=== PATIENT | female | born 1955 | race Caucasian/White ===

== ENCOUNTER 2016-06-15 19:29 | Inpatient (IN) | payer OTHER ==
[~2016-06-15] VITALS: Ht 172.7 cm; Wt 103.2 kg
--- NOTE | ~2016-06-15 | CATHLAB ---
[facility] [employer] [place] [address] INVASIVE PROCEDURE REPORT Name: LILIA SERRANO Room #: 204-P [facility] IN ..#: [id number] Admission: 06/15/16 Attend Phys: Chuy Rivera MD Discharge: Date of : 55 Date of Service: 06/16/16 1001 Report #: [id number] THIS REPORT FOR: //name// CC: Ally Rivera PROCEDURES: Left ventriculography, coronary angiography, selective renal angiography. DESCRIPTION OF PROCEDURE: The patient brought to the catheterization lab with a significant troponin elevation of 25. Pain free. Right groin prepped and draped in sterile manner. Xylocaine 1% was used for local anesthesia. Versed was given for conscious sedation. A 6-Urdu sheath in the right femoral artery. A straight pigtail catheter performed a single KISER arteriogram and AP aortogram. LV function was preserved. Abdominal aorta was intact. FL4 left coronary system, FR4 right coronary system. I also utilized the FR4 for selective renal artery injections. It looked like the right renal artery had significant disease. These were minimally diseased bilaterally, single bilateral. The coronary system appeared to be normal and in fact pristine coronary arteries in predominantly a left dominant system. I do not see evidence of ruptured plaque or any residual thrombus or clot. Supposition is that this could be coronary spasm. The patient had been taking significant amount of Sudafed over the last 2 or 3 days, doubling up on her doses. She is pain free and comfortable. Mynx closure was utilized for the right femoral artery. HEMODYNAMICS: Aortic 150/92. LV 168/18. IMPRESSION: 1. Normal coronary anatomy in a predominantly left dominant system. No occlusive disease is noted, somewhat I would say codominant system. No occlusive disease is noted. 2. Normal left ventricular size and systolic function, EF 60%, no clear wall motion abnormality. Perhaps a slight area of anterior lateral wall lag, but would confirm this with echo. 3. Single bilateral renal arteries widely patent. RECOMMENDATIONS: Continue aggressive risk factor modification. Would avoid all tobacco products and/or decongestions indefinitely. Would add calcium channel celestine plus minus a long-acting nitrate, continue with statin. Obviously, coronary spasm is very concerning. We will discuss this further with the patient. No lifting for 48 hours. No lying in tub, Jacuzzi or cardoso for a week. Transfer back to CCU in stable condition. By: 1001 2132 Maxime Negrete MD, FACC /nt
--- NOTE | ~2016-06-15 | EKG ---
[place] [address] [facility] [place] [address] ELECTROCARDIOGRAM REPORT Name: LILIA SERRANO Room #: 204-P ADM IN M.R.#: [id number] Admission: 06/15/16 Attend Phys: Chuy Rivera MD Discharge: Date of : 55 Report #: [id number] THIS REPORT FOR: //name// [facility] ED Test Date: 2016-06-15 Test Time: 19:32:43 Pat Name: LILIA SERRANO Department: Room: 204 P Gender: F Linen Checker: MZOOSerena : 1955 Requested By: Erin Daniel Order Number: [id number] MD: Jensen Jean Measurements Intervals [place] Rate: 74 P: 30 ID: 136 QRS: -2 QRSD: 97 T: 4 QT: 414 QTc: 460 Interpretive Statements Sinus rhythm Minimal ST depression, anterior leads No previous ECG available for comparison Electronically Signed On 06-17-2016 7:40:30 CDT by Jensen Jean [email or web address] <ELECTRONICALLY SIGNED> By: Jensen Jean MD, [facility] 06/17/16 0740 1931 31 Jensen Jean MD, FACC /EPI
--- NOTE | ~2016-06-15 | H ---
[facility] [place] [address] HISTORY AND PHYSICAL Name: LILIA SERRANO Room #: 204-P ADM IN M.R.#: [id number] Admission: 06/15/16 Attend Phys: Camilo Palma MD Discharge: Date of : 55 Report #: [id number] THIS REPORT FOR: //name// CC: Ally Palma DATE OF SERVICE: 06/15/2016 ATTENDING PHYSICIAN: Ally Deal M.D. CHIEF COMPLAINT: Chest pain. HISTORY OF PRESENT ILLNESS: The patient is a 60-year-old female who denies any prior history of coronary artery disease. She was at home today in her normal state of health when she developed some chest pain after walking up some stairs at home. The pain was located mostly in the middle of her chest and above her left breast. She did have some radiation of the pain into her chin and jaw area. She had nausea with the onset and vomited once. She said the pain was severe and rated it 7/10 at its onset. She denies any associated shortness of breath or diaphoresis. She has never had this type of pain before. She denies any other recent exertional chest pain. She took 4 baby aspirin at home and called EMS. In the ER, her pain resolved even prior to getting any morphine or nitro. She did have a stress test 8-10 years ago, which was negative. She just had an echocardiogram last year, which she said was negative. She is now currently being seen in the CCU. She says her pain is starting to come back and rates it 2-3/10. PAST MEDICAL HISTORY: Rheumatoid arthritis, hypothyroidism, hyperlipidemia and iron deficiency anemia. PAST SURGICAL HISTORY: Knee surgery, cholecystectomy, hysterectomy and ovary removal. ALLERGIES: None. HOME MEDICATIONS: Methotrexate 2.5 mg weekly, iron 325 mg daily, cholestyramine 4 grams daily, calcium with vitamin D 1 tab daily, Protonix 40 mg b.i.d., prednisone 5 mg daily, levothyroxine 200 mcg daily, folic acid 1 mg daily and Actemra 162 mg daily. SOCIAL HISTORY: The patient is an ex-smoker, having quit 1 year ago after smoking up to 1-1/2 packs of cigarettes per day for 42 years. 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 She lives with her female partner. She denies any alcohol or drug use. FAMILY HISTORY: Her father had some heart problems and has a pacemaker and had [facility] [address] [place] [address] HISTORY AND PHYSICAL Name: LILIA SERRANO Room #: 204-P [facility] IN [facility]#: [id number] Admission: 06/15/16 Attend Phys: Camilo Palma MD Discharge: Date of : 55 Report #: [id number] to have a valve replacement. REVIEW OF SYSTEMS: A 12-point review of systems was reviewed with the patient, otherwise negative unless stated in the HPI. PHYSICAL EXAMINATION: GENERAL: The patient is an alert, pleasant female in no acute distress. VITAL SIGNS: Temperature is 36.8, heart rate 69, respirations 14, blood pressure is 149/91 and oxygen 100% on room air. HEENT: PERRLA. Sclerae are nonicteric. Oral mucosa is pink and moist. NECK: Supple, no JVD noted. CARDIOVASCULAR: Normal S1, S2. No murmurs, rubs or gallops. RESPIRATORY: Breath sounds are clear bilaterally. No wheezing or rhonchi. Breathing is nonlabored. ABDOMEN: Soft, round, nontender and nondistended with positive bowel sounds. VASCULAR: No edema noted. Pedal pulses are 2+. NEUROLOGIC: The patient is alert and oriented x 3. Speech is clear. She is moving all extremities equally. No focal neuro deficits noted. LABORATORY AND DIAGNOSTIC DATA: WBC is 3.7, hemoglobin is 12.6 and platelets 141. INR 1.1. Sodium 142, potassium 3.4, BUN 14, creatinine 0.8 and glucose 110. LFTs are within normal limits. CK is 80, initial troponin was 0.85. BNP 166. Chest x-ray showed some mild atelectasis or a strand-like infiltrate in the left lung base. Remainder of the lungs are clear. Initial EKG showed sinus rhythm with minimal ST depression in the anterior leads. ASSESSMENT AND PLAN: 1. Non-ST elevation myocardial infarction. Repeat troponin has just been drawn and results are pending. Repeat EKG did show some improvement in the anteriorly lead ST changes. She was given a dose of therapeutic Lovenox in the ER. Continue with daily aspirin and await further cardiology recommendations. Continue to monitor on telemetry. 2. Rheumatoid arthritis. She is on immunosuppressant therapy with daily steroids and Actemra and methotrexate. Continue with home meds. 3. Hypothyroidism. Check TSH level. Continue Synthroid. 4. Hypokalemia. This will be replaced. Follow labs. 5. Deep vein thrombosis prophylaxis. Place sequential compression devices. We will continue to follow the patient closely throughout the hospitalization and make changes based on clinical status. <ELECTRONICALLY SIGNED> By: ALIYAH Maldonado 06/16/16 0615 0455 0602 Jeannine Alexander, MACHINIST SUPERVISOR /nt
--- NOTE | ~2016-06-15 | EKG ---
[address] [employer] [place] [address] ELECTROCARDIOGRAM REPORT Name: LILIA SERRANO Room #: 204-P [facility] IN M.R.#: [id number] Admission: 06/15/16 Attend Phys: Chuy Rivera MD Discharge: Date of : 55 Report #: [id number] THIS REPORT FOR: //name// [facility] Test Date: 2016-06-15 Test Time: 23:50:41 Pat Name: LILIA SERRANO Department: Room: 204 Gender: F Executive Casino Host: WALTER : 1955 Requested By: Erin Daniel Order Number: [id number] MD: Jensen Jean Measurements Intervals [place] Rate: 67 P: 40 [place]: 133 QRS: 8 QRSD: 101 T: 41 QT: 543 QTc: 574 Interpretive Statements Sinus rhythm Nonspecific ST and T wave abnormality Prolonged QT interval No previous ECG available for comparison Electronically Signed On 06-17-2016 7:42:53 CDT by Jensen Jean [email or web address] <ELECTRONICALLY SIGNED> By: Jensen Jean MD, [facility] 06/17/16 0742 2350 49 Jensen Jean MD, FACC /EPI
--- NOTE | ~2016-06-15 | HC ---
[facility] [place] [address] CONSULTATION Name: LILIA SERRANO Adrian Room #: 204-P [facility] IN ..#: [id number] Admission: 06/15/16 Attend Phys: Chuy Rivera MD Discharge: 06/17/16 Date of : 55 Report #: [id number] THIS REPORT FOR: //name// CC: Ally Rivera CARDIOLOGY CONSULTATION REASON FOR CONSULTATION: Non-ST segment elevation DE. HISTORY OF PRESENT ILLNESS: The patient is a 60-year-old female with a history of rheumatoid arthritis, tobacco abuse and hyperlipidemia, who presents with new-onset chest pain, 7/10 in intensity, describes as a heaviness, which radiated to her jaw, associated with some nausea and vomiting. She presented to the Emergency Room though the pain had resolved. She reports that she had an echo at [place] about a year ago when she was having some shortness of breath and that was normal. She is currently chest pain free. PAST MEDICAL HISTORY: 1. Tobacco abuse. 2. Rheumatoid arthritis, on methotrexate. 3. Hypothyroidism. 4. Hyperlipidemia. PAST SURGICAL HISTORY: Includes knee surgery, cholecystectomy, hysterectomy, ovaries removed. ALLERGIES: No known drug allergies. MEDICATIONS: Include Actemra, folic acid, Synthroid, prednisone, Protonix, vitamin D, cholestyramine, iron and methotrexate. SOCIAL HISTORY: She quit smoking 1 year ago. 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 REVIEW OF SYSTEMS: Twelve-point review of systems was performed, it was otherwise negative. PHYSICAL EXAMINATION: VITAL SIGNS: Blood pressure is 36.6, pulse 60, respirations 16, blood pressure 138/87, sats 97%. GENERAL: She is in no acute distress. HEENT: Oropharynx is clear. NECK: Supple with no thyromegaly or carotid bruits. HEART: Regular rate and rhythm with normal S1 and S2. No S3 or S4. LUNGS: Clear to auscultation bilaterally. ABDOMEN: Soft, nontender, nondistended with no hepatosplenomegaly. [facility] [address] [place] [address] CONSULTATION Name: LILIA SERRANO Room #: 204-[facility].#: [id number] Admission: 06/15/16 Attend Phys: Chuy Rivera MD Discharge: 06/17/16 Date of : 55 Report #: [id number] EXTREMITIES: There is no clubbing, cyanosis, or edema. NEUROLOGIC: Cranial nerves 2-12 are intact. LABORATORY DATA: Sodium 144, potassium 3.6, BUN 12, creatinine 0.7, mag 1.9. White count 3.7, hemoglobin 12.6, platelets are 141. Troponins; initial troponin was 0.85, then increased to 36.4, then decreased to 25.8. Her 12-lead EKGs, initial EKG showed some mild ST depression in V2, V3 and V4; that was at 7:00 p.m. Her followup EKGs at 2350 and this morning at 6:52 just show sinus rhythm with no ST changes. Chest x-ray shows no acute process. IMPRESSION: In summary, the patient is a 60-year-old female with history of rheumatoid arthritis, tobacco abuse and hyperlipidemia, presenting with chest pain and elevated troponins. It appears that she is having a non-ST segment elevation myocardial infarction. I discussed that she will require cardiac catheterization. We discussed the details of the procedure including the risks, which include, but not limited to bleeding, vascular damage as well as stroke or DE. She understands these risks and is willing to proceed. We will obtain an echocardiogram as well. <ELECTRONICALLY SIGNED> By: Misha Burton MD 06/21/16 0853 0816 1044 Misha Burton MD /nt
--- NOTE | ~2016-06-15 | D ---
[facility] [place] [address] DISCHARGE SUMMARY Name: LILIA SERRANO Adrian Room #: 204-P [facility] IN ..#: [id number] Admission: 06/15/16 Attend Phys: Chuy Rivera MD Discharge: 06/17/16 Date of : 55 Report #: [id number] THIS REPORT FOR: //name// CC: Ally Rivera DATE OF SERVICE: 06/17/2016 REASON FOR ADMISSION: Chest pain. DISCHARGE DIAGNOSES: 1. Troponin elevation and chest pain, felt to be from coronary vasospasm. 2. Hypothyroidism with elevated TSH. CONSULTATIONS WHILE INPATIENT: Dr. Negrete, Cardiology. PROCEDURES: There is coronary catheterization performed without significant coronary artery disease noted. Chest x-ray without acute findings. PHYSICAL EXAMINATION: VITAL SIGNS: On day of discharge, the patient is afebrile, pulse 72, respiration rate 18, O2 sat 95 on room air, blood pressure 107/55. GENERAL: Awake, alert, in no acute distress. HEENT: Unremarkable. NECK: No JVD or thyromegaly. HEART: S1, S2 present. Regular entry present bilaterally. ABDOMEN: Soft, nontender. EXTREMITIES: Without edema. Right groin cath site without palpable hematoma. NEUROLOGIC: Awake, alert. No gross focal findings. SKIN: Unremarkable, no rash or lesions. LABORATORIES AND INVESTIGATIONS: Notable for elevated TSH of 13.731. BRIEF INPATIENT COURSE: The patient is a 60-year-old female who presented with chest pain and was noted to have troponin elevation, peaking at 36.4. She subsequently underwent coronary catheterization, which did not reveal any significant coronary artery disease. Her symptoms were resolved by the time of discharge and felt most likely to represent coronary vasospasm. She has been started on a calcium channel celestine by Cardiology at discharge and we will continue close outpatient with them post-discharge. She was incidentally also noted to have elevated TSH and her outpatient thyroxine dose will be increased and she will continue to follow up for the same with her primary care physician. She is otherwise doing fair on discharge. I have discussed again condition [facility] [address] [place] [address] DISCHARGE SUMMARY Name: LILIA SERRANO Room #: 204-P [facility] IN [facility].#: [id number] Admission: 06/15/16 Attend Phys: Chuy Rivera MD Discharge: 06/17/16 Date of : 55 Report #: [id number] with her in detail and spent greater than 30 minutes in the discharge process for this patient today. <ELECTRONICALLY SIGNED> By: Rodríguez Wilkerson MD 06/17/16 1543 0843 1408 Rodríguez Wilkerson MD /nt
--- NOTE | ~2016-06-15 | EKG ---
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 : 1955 Requested By: Erin Daniel Order Number: [id number] MD: Jensen Jean Measurements Intervals [place] Rate: 62 P: 35 [place]: 127 QRS: 14 QRSD: 101 T: 38 QT: 494 QTc: 502 Interpretive Statements Sinus rhythm Borderline T wave abnormalities Borderline prolonged QT interval Baseline wander in lead(s) V3,V5 No previous ECG available for comparison Electronically Signed On 06-17-2016 7:47:23 CDT by Jensen Jean [email or web address] <ELECTRONICALLY SIGNED> By: Jensen Jean MD, [facility] 06/17/16 0747 1 1 Jensen Jean MD, [facility] /EPI
[2016-06-15 19:31] VITALS: BP 149/91
[2016-06-15] MEDS ORDERED: ACTEMRA162 MG/0.9 SQ (20:01)
[2016-06-15] MEDS ORDERED: METHOTREXATE 22.5 MG PO (20:01)
[2016-06-15] MEDS ORDERED: CHOLESTYRAMINE P4 GM PO (20:01)
[2016-06-15] MEDS ORDERED: FOLIC ACID1 MG PO (20:01)
[2016-06-15] MEDS ORDERED: PREDNISONE 5 MG5 M1 PO (20:01)
[2016-06-15] MEDS ORDERED: PANTOPRAZOLE SO40 M1 PO (20:01)
[2016-06-15] MEDS ORDERED: LEVOTHYROXINE0.2 M1 PO (20:02)
[2016-06-15 20:24] LABS: ABSOLUTE NEUTROPHILS 2.3 thou/uL (1.4-8.2); BASOPHILS 0.5 % (0.0-2.0); EOSINOPHILS 5.2 % (0.0-3.0); HEMATOCRIT 37.1 % (37.0-47.0); HEMOGLOBIN 12.6 gm/dL (12.0-15.0); LYMPHOCYTES 22.2 % (24.0-44.0); MCH 32.1 pg (26.0-34.0); MCHC 34.1 g/dL (28.0-37.0); MCV 93.9 fL (80.0-100.0); MONOCYTES 9.7 % (1.0-8.0); PLATELET COUNT 141 thou/uL (150-400); POLYS 62.4 % (36.0-66.0); RBC 3.95 mil/uL (4.20-5.00); RDW 15.9 % (10.5-14.5); WBC 3.7 thou/uL (4.0-11.0)
[2016-06-15 20:28] LABS: MANUAL DIFF NO
[2016-06-15 20:35] LABS: CALCIUM 9.1 mg/dL (8.5-10.1); CREATININE 0.8 mg/dL (0.6-1.0); POTASSIUM 3.4 mmol/L (3.5-5.1)
[2016-06-15 20:40] LABS: APTT 28.4 Seconds (24.5-32.8); INR 1.1
[2016-06-15 20:47] LABS: ALBUMIN 3.8 g/dL (3.4-5.0); TOTAL BILIRUBIN 1.4 mg/dL (<0.1-1.0); TOTAL PROTEIN 7.2 g/dL (6.4-8.2)
[2016-06-15 20:48] LABS: TROPONIN-I 0.85 ng/mL (<0.04-0.07)
[2016-06-15 21:48] VITALS: BP 138/75
[2016-06-15] MEDS ORDERED: IRON325 PO (22:16)
[2016-06-15] MEDS ORDERED: CALCIUM 500 +1 EAC5 PO (22:17)
[2016-06-15 22:18] VITALS: BP 135/74
[2016-06-16] VITALS (13 sets, daily range): BP systolic 121–139; BP diastolic 72–87
[2016-06-16 05:48] LABS: CREATININE 0.7 mg/dL (0.6-1.0); MAGNESIUM 1.9 mg/dL (1.8-2.4); POTASSIUM 3.6 mmol/L (3.5-5.1)
[2016-06-16 08:28] LABS: CHOLESTEROL 202 mg/dL (<200); HDL CHOLESTEROL 54 mg/dL (>40); LDL CHOLESTEROL 126 mg/dL (<100); TC:HDL 3.7 Ratio (Not establshd); TRIGLYCERIDE 110 mg/dL (<150); VLDL 22 mg/dL (<40)
[2016-06-17 00:18] VITALS: BP 102/59
[2016-06-17 00:57] VITALS: BP 102/59
[2016-06-17 03:29] VITALS: BP 125/62
[2016-06-17 04:50] VITALS: BP 125/62
[2016-06-17 07:47] VITALS: BP 107/55
[2016-06-17] MEDS ORDERED: AMLODIPINE BESYL5 MG PO (08:33)
[2016-06-17] MEDS ORDERED: ATORVASTATIN CA20 MG PO (08:33)
[2016-06-17] MEDS ORDERED: ADULT LOW DOSE81 MG PO (08:34)
[2016-06-17] MEDS ORDERED: LEVOTHYROXIN0.025 MG PO (08:35)
[2016-06-17] MEDS ORDERED: IMDUR 30 MG TAB30 M1 PO (09:24)
[2016-06-17] MEDS ORDERED: NITROGLYCERIN0.4 MG SUBLING (09:27)
[2016-06-17 10:03] VITALS: BP 107/55
== END 2016-06-17 10:50 | disposition home or self-care (01) | DRG 287 ==
LOC: ER 19:29 → EROBS 21:30 → 2N 21:30
PROVIDERS: Emergency Medicine; Nurse Practitioner Acute Care
PROC: 4A023N7 Measurement of Cardiac Sampling and Pressure, Left Heart, Percutaneous Approach (ICD-10-PCS; principal; 2016-06-16)
PROC: B2151ZZ Fluoroscopy of Left Heart using Low Osmolar Contrast (ICD-10-PCS; principal; 2016-06-16)
PROC: B2111ZZ Fluoroscopy of Multiple Coronary Arteries using Low Osmolar Contrast (ICD-10-PCS; principal; 2016-06-16)
DX: I20.1 Angina pectoris with documented spasm (principal); E78.5 Hyperlipidemia, unspecified; M06.9 Rheumatoid arthritis, unspecified; E87.6 Hypokalemia; E78.00 Pure hypercholesterolemia, unspecified; E03.9 Hypothyroidism, unspecified; Z87.891 Personal history of nicotine dependence; Z90.49 Acquired absence of other specified parts of digestive tract; Z90.710 Acquired absence of both cervix and uterus; Z90.722 Acquired absence of ovaries, bilateral; Z82.49 Family history of ischemic heart disease and other diseases of the circulatory system
CPT/HCPCS: 10081

== ENCOUNTER 2019-01-22 12:39 | Emergency (ER) | payer OTHER ==
[~2019-01-22] VITALS: Ht 170.2 cm; Wt 84.8 kg
[~2019-01-22 12:39] MED LIST: ACTEMRA162 MG/0.9 SQ; ADULT LOW DOSE81 MG PO; AMLODIPINE BESYL5 MG PO; ATORVASTATIN CA20 MG PO; CALCIUM 500 +1 EAC5 PO; CHOLESTYRAMINE P4 GM PO; FOLIC ACID1 MG PO; IMDUR 30 MG TAB30 M1 PO; IRON325 PO; LEVOTHYROXIN0.025 MG PO; LEVOTHYROXINE0.2 M1 PO; METHOTREXATE 22.5 MG PO; NITROGLYCERIN0.4 MG SUBLING; PANTOPRAZOLE SO40 M1 PO; PREDNISONE 5 MG5 M1 PO
[2019-01-22] MEDS ORDERED: NORVASC 2.5 MG2.5 M1 PO (13:03)
[2019-01-22] MEDS ORDERED: ALPRAZOLAM XR3 MG PO (13:08)
[2019-01-22] MEDS ORDERED: PRAVACHOL 20 MG20 M1 PO (13:10)
[2019-01-22 13:12] LABS: ABSOLUTE NEUTROPHILS 3.5 thou/uL (1.4-8.2); BASOPHILS 0.6 % (0.0-2.0); EOSINOPHILS 4.5 % (0.0-3.0); HEMATOCRIT 38.7 % (37.0-47.0); LYMPHOCYTES 8.5 % (24.0-44.0); MCHC 33.6 g/dL (28.0-37.0); PLATELET COUNT 128 thou/uL (150-400); POLYS 75.4 % (36.0-66.0); RBC 4.07 mil/uL (4.20-5.00); RDW 14.3 % (10.5-14.5); WBC 4.7 thou/uL (4.0-11.0)
[2019-01-22 13:15] LABS: CALCIUM 9.6 mg/dL (8.5-10.1)
[2019-01-22 13:20] LABS: ALBUMIN 4.2 g/dL (3.4-5.0); TOTAL BILIRUBIN 2.5 mg/dL (<0.1-1.0); TOTAL PROTEIN 7.7 g/dL (6.4-8.2)
[2019-01-22 13:32] VITALS: BP 124/70
[2019-01-22 13:35] LABS: URINE BILIRUBIN NEGATIVE (Negative); URINE BLOOD 1+ (Negative); URINE CLARITY CLEAR; URINE COLOR YELLOW; URINE GLUCOSE-RANDOM* NEGATIVE (Negative); URINE KETONES 1+ (Negative); URINE LEUKOCYTES-REFLEX NEGATIVE (Negative); URINE NITRITE-REFLEX NEGATIVE (Negative); URINE PROTEIN (DIPSTICK) NEGATIVE (Negative); URINE SPECIFIC GRAVITY 1.025 (1.005-1.035); URINE UROBILINOGEN 0.2 E.U./dl (0.2-1.0)
[2019-01-22 14:01] LABS: SQUAMOUS 0-3 Few /LPF (0-3)
[2019-01-22 14:02] LABS: BACTERIA-REFLEX 1-9 Few /HPF (None Seen); CASTS None Seen /LPF (None Seen); CRYSTALS None Seen /LPF (None Seen); URINE RBC 0-2 Rare /HPF (0-2); URINE WBC-REFLEX None Seen /HPF (0-5)
[2019-01-22] MEDS ORDERED: ONDANSETRON HCL4 M2 PO (14:36)
[2019-01-22] MEDS ORDERED: NORCO 5-325 TA1 EAC1 PO (14:36)
== END 2019-01-22 15:14 | disposition home or self-care (01) ==
LOC: ER 12:39
PROVIDERS: Physician Assistant
DX: N20.0 Calculus of kidney (principal); E03.9 Hypothyroidism, unspecified; M06.9 Rheumatoid arthritis, unspecified; Z96.659 Presence of unspecified artificial knee joint; Z90.49 Acquired absence of other specified parts of digestive tract; Z90.710 Acquired absence of both cervix and uterus; Z90.721 Acquired absence of ovaries, unilateral; Z95.5 Presence of coronary angioplasty implant and graft; Z87.891 Personal history of nicotine dependence

== ENCOUNTER → 2019-11-09 | Outpatient (CLI) | payer OTHER ==
[~2019-11-09] MED LIST changes: +ALPRAZOLAM XR3 MG PO; +NORCO 5-325 TA1 EAC1 PO; +NORVASC 2.5 MG2.5 M1 PO; +ONDANSETRON HCL4 M2 PO; +PRAVACHOL 20 MG20 M1 PO
== END ==
LOC: CAT 15:56
PROVIDERS: ATTEND Internal Medicine Cardiovascular Disease
DX: Z13.6 Encounter for screening for cardiovascular disorders (principal); I25.10 Atherosclerotic heart disease of native coronary artery without angina pectoris; E78.00 Pure hypercholesterolemia, unspecified

== ENCOUNTER → 2019-12-10 | Outpatient (CLI) | payer OTHER | LOC: SJCVCIMAG 09:03 | PROVIDERS: ATTEND Internal Medicine Cardiovascular Disease | DX: I08.1 Rheumatic disorders of both mitral and tricuspid valves (principal); I25.111 Atherosclerotic heart disease of native coronary artery with angina pectoris with documented spasm; I10 Essential (primary) hypertension; E78.5 Hyperlipidemia, unspecified; Z87.891 Personal history of nicotine dependence ==

== ENCOUNTER → 2021-02-17 | Outpatient (CLI) | payer OTHER, MEDICARE ==
[~2021-02-17] MED LIST changes: +IMITREX 50 MG T50 MG PO; +LEVOTHYROXINE175 MC1 PO; +LOPERAMIDE 2 MG2 M1 PO; -PANTOPRAZOLE SO40 M1 PO; +PROTONIX40 M3 PO; +VITAMIN D3125 MC2 PO; +[UNRECOGNIZED DRUG - REMARK]
== END ==
LOC: LAB 11:03
PROVIDERS: ATTEND Student in an Organized Health Care Education/Training Program
DX: Z01.812 Encounter for preprocedural laboratory examination (principal); Z20.822 Contact with and (suspected) exposure to COVID-19

== ENCOUNTER → 2021-02-18 | Outpatient (CLI) | payer OTHER, MEDICARE ==
[~2021-02-18] VITALS: Ht 170.2 cm; Wt 99.8 kg
--- NOTE | ~2021-02-18 | P ---
[facility] [place] [address] PROCEDURE REPORT Name: LILIA SERRANO Room #: REG [facility]YSHA Yu#: [id number] Admission: 02/18/21 Attend Phys: Christian Swift Discharge: Date of : 55 Report #: [id number] THIS REPORT FOR: cc: Elbert Delacruz David J. DO McElhinney, Christian C. MD ~ DATE OF SERVICE: 02/18/2021 PROCEDURE PERFORMED: Colonoscopy with biopsies. HISTORY OF PRESENT ILLNESS: The patient is a 65-year-old female with a history of colon polyps, last one 5 years ago. She does report intermittent soft stools and lack of fecal control at times. She also has a family history of colon cancer in her grandfather. DESCRIPTION OF PROCEDURE: The risks and benefits of the procedure were explained to the patient, those risks including, but not limited to bleeding, perforation and the risk of sedation. She understood these risks and gave informed consent. Sedation was given using propofol per anesthesia. Next, a digital rectal exam was initially performed, which was normal. Next, using a standard Olympus colonoscope, the scope was placed in the patient's anus and advanced under direct vision to the cecum. The overall prep was good. The cecum and ileocecal valve were normal in appearance. The ascending and transverse colon were normal. A few scattered diverticula were noted in the descending and sigmoid colon. No evidence of inflammation. Random colon biopsies were obtained today to rule out the possibility of microscopic colitis. Rectal mucosa was normal. On retroflexion, no abnormalities were noted. The scope was then withdrawn and the procedure terminated. The patient tolerated the procedure well. IMPRESSION: 1. Left-sided diverticulosis. 2. Otherwise, normal colonoscopy. RECOMMENDATIONS: 1. Await biopsy results. 2. We discussed a trial of Questran. 3. Repeat colonoscopy in 5 years. Thank you for allowing me to participate in her care. By: 1034 2044 Christian Harris MD /nt
--- NOTE | 2021-02-20 09:08 | PATH ---
[facility] [address] [place] [address] PATHOLOGY RPT PROCEDURE Name: KALANI SAUL Adrian Room #: REG [facility] M.R.#: [id number] Admission: 02/18/21 Date of : 55 Discharge: Report #: [id number] Path Case #: [id number] [facility] Accession Number: [id number] . 01 Material submitted: . colon - RANDOM COLON BIOPSY- R/O MICROSCOPIC COLITIS . 01 Clinical history: . COLONOSCOPY HX OF POLYPS, FAMILY HX OF COLON CA DIVERTICULITIS . 02 Diagnosis: Random colon, biopsy: - Colonic mucosa with mild chronic nonspecific inflammation. - Negative for microscopic colitis, inflammatory bowel disease or infectious etiology. ANK:galo; 02/19/2021) QMS 02/19/2021 1027 Local . 02 Electronically signed: . Gwen Olvera MD, Pathologist NPI- [id number] . 01 Gross description: . The specimen is received in formalin, labeled "Star Saulaine, random colon BX, rule out microscopic colitis". Received are multiple segments of pale parkinson tissue ranging in size from 0.2-1.1 cm in maximum dimension. The specimen is entirely submitted in cassette A1. ([facility]; 02/18/2021) NRI/NRI 02/19/2021 1022 Local . 02 Pathologist provided ICD-10: K52.9 . 02 CPT . 789040 Specimen Comment: A courtesy copy of this report has been sent to [phone], [phone] Specimen Comment: [phone] Specimen Comment: Report sent to / DR CARMONA Specimen Comment: A duplicate report has been generated due to demographic updates. Performed at: 01 [facility] [address] [id number] MD Poncho Blandon MD Phone: [phone] [address] [address] PATHOLOGY RPT PROCEDURE Name: MAGGIEKALANI [facility] [id number] Admission: 02/18/21 Date of : 55 Discharge: Report #: [id number] Path Case #: [id number] Performed at: 02 [facility] [address] [place], [place] [id number] MD Elma Maza MD Phone: [phone]
== END | disposition home or self-care (01) ==
LOC: GI 08:36
PROVIDERS: ATTEND Specialist
DX: K52.9 Noninfective gastroenteritis and colitis, unspecified (principal); K57.30 Diverticulosis of large intestine without perforation or abscess without bleeding; E78.00 Pure hypercholesterolemia, unspecified; E03.9 Hypothyroidism, unspecified; M06.9 Rheumatoid arthritis, unspecified; Z86.010 Personal history of colon polyps; Z98.890 Other specified postprocedural states; Z80.0 Family history of malignant neoplasm of digestive organs; Z79.899 Other long term (current) drug therapy; Z90.49 Acquired absence of other specified parts of digestive tract; Z90.710 Acquired absence of both cervix and uterus; Z87.442 Personal history of urinary calculi; Z96.642 Presence of left artificial hip joint
CPT/HCPCS: 62110; 62900

== ENCOUNTER → 2021-03-25 | Outpatient (CLI) | payer OTHER, MEDICARE | LOC: SJCVC 15:49 | PROVIDERS: ATTEND Internal Medicine Cardiovascular Disease | DX: R93.1 Abnormal findings on diagnostic imaging of heart and coronary circulation (principal); I10 Essential (primary) hypertension; E78.00 Pure hypercholesterolemia, unspecified; E03.9 Hypothyroidism, unspecified; R06.00 Dyspnea, unspecified; E78.5 Hyperlipidemia, unspecified; Z87.891 Personal history of nicotine dependence; Z79.899 Other long term (current) drug therapy; Z79.82 Long term (current) use of aspirin ==